=== PATIENT | female | born 1990 | race Caucasian/White ===

== ENCOUNTER 2018-02-28 22:35 | Inpatient (IN) | payer OTHER ==
[~2018-02-28] VITALS: Ht 170.2 cm; Wt 83.5 kg
[2018-02-28] MEDS ORDERED: OXYTOCIN 20 UNITS/LACT RINGERS 1,000 ML IV ONE (23:04)
[2018-02-28] MEDS ORDERED: RINGERS SOLUTION,LACTATED 1,000 ML IV SCH (23:04)
[2018-02-28] MEDS ORDERED: METOCLOPRAMIDE HCL 5 MG/ML 2 ML VIAL IVP PRN (23:15)
[2018-02-28] MEDS ORDERED: TERBUTALINE SULFATE 1 MG/ML VIAL SQ PRN (23:15)
[2018-02-28] MEDS ORDERED: LIDOCAINE HCL/PF 1% 30 ML VIAL INJ PRN (23:15)
[2018-02-28] MEDS ORDERED: CITRIC ACID/SODIUM CITRATE 30 ML SOLUTION UDCUP PO PRN (23:15)
[2018-02-28] MEDS ORDERED: OXYTOCIN 30 UNITS/LACT RINGERS 500 ML IV ONE (23:22)
[2018-02-28 23:47] LABS: BASOPHILS % (AUTO) 0.6 % (0.0-2.0); EOSINOPHILS % (AUTO) 0.2 % (1.0-6.0); HEMATOCRIT 36.2 % (36-46); HEMOGLOBIN 12.5 g/dL (12.0-16.0); LYMPHOCYTES # (AUTO) 1.4 K/uL (1.0-4.8); LYMPHOCYTES % (AUTO) 16.2 % (22.0-44.0); MEAN CORPUSCULAR HEMOGLOBIN 29.1 pg (26.0-34.0); MEAN CORPUSCULAR HGB CONC 34.5 G/dL (31.0-37.0); MEAN CORPUSCULAR VOLUME 84 fL (80-100); MONOCYTES # (AUTO) 0.7 K/uL (0.1-1.0); MONOCYTES % (AUTO) 7.7 % (2.0-9.0); NEUTROPHILS # (AUTO) 6.5 K/uL (1.8-7.7); NEUTROPHILS % (AUTO) 75.3 % (40.0-70.0); PLATELET COUNT (AUTO)-OB 189 K/uL (150-450); RED BLOOD CELL COUNT(AUTO) 4.29 MIL/uL (4.00-5.20); RED CELL DISTRIBUTION WIDTH 15.6 % (11.5-14.5)
[2018-02-28] MEDS ORDERED: prenatal PO (23:55)
[2018-02-28 23:56] VITALS: BP 127/70
[2018-03-01] MEDS ORDERED: RINGERS SOLUTION,LACTATED 1,000 ML IV ONE (01:43)
[2018-03-01] MEDS ORDERED: OxyCODONE HCL/ACETAMINOPHEN 5-325 MG TABLET PO PRN ×2 (01:45)
[2018-03-01] MEDS ORDERED: BENZOCAINE 20%/MENTHOL 56 GM SPRAY CANISTER TP PRN (01:45)
[2018-03-01] MEDS ORDERED: MEASLES/MUMPS/RUBELLA VACCINE, LIVE 0.5 ML/VIAL SQ ONE (01:45)
[2018-03-01] MEDS ORDERED: GLYCERIN/WITCH HAZEL LEAF 40 PADS JAR TP PRN (01:45)
[2018-03-01] MEDS ORDERED: LANOLIN 7 GM OINTMENT TP PRN (01:45)
[2018-03-01] MEDS: IBUPROFEN 600 MG TABLET PO PRN ×2 (02:45→16:10)
[2018-03-01] MEDS: MAGNESIUM HYDROXIDE SUSPENSION 30 ML UDCUP PO SCH ×2 (09:08→21:00)
[2018-03-02] MEDS: IBUPROFEN 600 MG TABLET PO PRN (00:46)
[2018-03-02] MEDS: MAGNESIUM HYDROXIDE SUSPENSION 30 ML UDCUP PO SCH (08:52)
[2018-03-02] MEDS ORDERED: IBUP-2071 PO (09:29)
[2018-03-02] MEDS ORDERED: IBUP-2354 PO (09:29)
[2018-03-02] MEDS ORDERED: IBUP-2070 PO (09:29)
== END 2018-03-02 11:15 | disposition home or self-care (01) | DRG 775 ==
LOC: 4S 22:35 → OBSVTOIN 22:35
PROVIDERS: ADMIT Obstetrics & Gynecology; ATTEND Obstetrics & Gynecology
PROC: 10E0XZZ Delivery of Products of Conception, External Approach (ICD-10-PCS; principal; 2018-03-01)
DX: O48.0 Post-term pregnancy (principal); Z3A.40 40 weeks gestation of pregnancy; Z37.0 Single live birth
CPT/HCPCS: 86850; 86900; 86901; J2590; J3490